=== PATIENT | female | born 1985 | race Caucasian/White ===

== ENCOUNTER → 2020-09-29 10:41 | Outpatient (CLI) | payer OTHER, SELFPAY ==
[2020-09-29 11:48] LABS: HCG Quantitative /Beta subunit 1104.9 mIU/mL
== END ==
PROVIDERS: PCP Obstetrics & Gynecology; Referring Provider Obstetrics & Gynecology; Visit Provider Obstetrics & Gynecology
DX: Z32.01 Encounter for pregnancy test, result positive (principal)
CPT/HCPCS: 36415; 84144; 84702

== ENCOUNTER → 2020-10-22 09:07 | Outpatient (CLI) | payer OTHER, SELFPAY ==
--- NOTE | 2020-10-22 09:08 | DI.US.S_ITS ---
PROCEDURE: US OB <= 14 WEEKS FETUS INDICATIONS: DATING AND VIABILITY OUTSIDE/PRIOR DATING DATA: Last menstrual period (LMP): Unknown LMP-based estimated date of delivery (EDGAR): Unknown First dating scan (date and location): 10/22/2020 at [facility] Estimated date of delivery (EDGAR) from first dating scan: 06/05/2021 TECHNIQUE: Real-time scanning was performed of the fetus and maternal pelvic organs, with image documentation. Endovaginal scanning was also performed to better visualize the fetus and maternal ovaries. COMPARISON: [facility], US, US PELVIC COMPLETE WITH TRANSVAGINAL, 04/29/2019, 19:26. FINDINGS: Single live intrauterine . Embryo: Intrauterine is seen with yolk sac and pole. Maurice-rump length measures 1.4 cm, consistent with a gestational age of 7 weeks 5 days. Heart rate: 163 beats per minute Measurement variability in dating: +/- 4 weeks by LMP, +/- 7 days by mean sac diameter (use before 6 weeks gestation if crown-rump length not able to be measured), +/- 5 days by crown-rump length (up to 8 weeks 6 days gestation), +/- 7 days by crown-rump length (up to 13 weeks 6 days gestation). Maternal organs: The ovaries are within normal limits bilaterally. A right ovarian corpus luteum cyst is seen measuring 3.3 x 3.3 x 2.9 cm. Heterogeneous appearance of the uterus is redemonstrated, most likely related to adenomyosis. A focal cystic structure is seen in the lower uterine segment that may be related to a degenerating fibroid or focal adenomyosis. IMPRESSION: 1. Single live intrauterine with estimated gestational age of 7 weeks 5 days. 2. Globular and heterogeneous uterine myometrium is most likely related to adenomyosis. Small avascular cystic structure in the lower uterine segment is nonspecific but most likely represents a degenerating fibroid or focal adenomyosis. Dictated by: Dashawn Chicas M.D. on 10/22/2020 at 10:10 Approved by: Dashawn Chicas M.D. on 10/22/2020 at 10:20
== END ==
PROVIDERS: PCP Family Medicine; Referring Provider Obstetrics & Gynecology; Visit Provider Obstetrics & Gynecology
DX: Z36.87 Encounter for antenatal screening for uncertain dates (principal); Z3A.01 Less than 8 weeks gestation of pregnancy
CPT/HCPCS: 76801; 76817

== ENCOUNTER → 2020-11-19 13:04 | Outpatient (CLI) | payer OTHER, SELFPAY ==
[2020-11-19 13:39] LABS: Appearance Urine UA CLEAR; Bilirubin Urine UA NEGATIVE (NEGATIVE); Color Urine UA YELLOW; Glucose Urine UA NEGATIVE (Negative); Ketones Urine UA 1+ (NEGATIVE); Leukocyte Esterase Urine UA 1+ (NEGATIVE); Nitrite Urine UA NEGATIVE (Negative); Occult Blood Urine UA 3+ (Negative); Protein Urine UA NEGATIVE (Negative); Specific Gravity Urine UA 1.015 (1.000-1.035); Urobilinogen Urine UA 0.2 E.U./dL (0.2)
[2020-11-19 13:41] LABS: pH Urine UA 5.5 (4.5-8.0)
[2020-11-19 13:51] LABS: Bacteria Urine Many (>30); RBC Urine 1-5/HPF (0-5/HPF); Squamous Epithelial Cell Urine 0-1 /HPF (0-5/HPF); WBC Urine 1-5/HPF (0-5/HPF)
[2020-11-19 13:52] LABS: Mucus Urine 1+ (Negative)
[2020-11-19 14:08] LABS: Add Manual Diff / Slide Review NO; Basophils Absolute Auto 0 /uL (0-100); Basophils Percent Auto 0.4 % (0-2); Eosinophils Absolute Auto 100 /uL (0-450); Eosinophils Percent Auto 0.8 % (2-4); Hematocrit 39.3 % (36-46); Hemoglobin 13.1 g/dL (12.0-16.0); Lymphocytes Absolute Auto 1600 /uL (1100-4500); Lymphocytes Percent Auto 23.6 % (25-40); Mean Corpuscular HGB Conc 33.5 % (30-36); Mean Corpuscular Hemoglobin 29.9 PG (26-34); Mean Corpuscular Volume 89.3 fL (80-100); Monocytes Absolute Auto 400 /uL (0-900); Monocytes Percent Auto 5.8 % (3-14); Neutrophils Absolute Auto 4600 /uL (1500-7000); Neutrophils Percent Auto 69.4 % (50-75); Platelet Count 282 X10^3/uL (150-400); Red Cell Distribution Width 14.3 % (11.6-14.8); White Blood Cell Count 6.7 X10^3/uL (4.5-11.0)
[2020-11-20 07:16] LABS: RPR Screen Non Reactive (Non Reactive)
[2020-11-20 08:13] LABS: Varicella IgG Antibody 608 index (Immune >165)
[2020-11-22 17:43] LABS: HIV 1 & 2 Ab/Ag 4th Gen Combo NEGATIVE (NEGATIVE); Hep C Virus Ab w/Reflex Quant NEGATIVE s/c (NEGATIVE); Hepatitis B Surface Antigen NEGATIVE s/c (NEGATIVE); Rubella Antibody IgG 13.6 IU/mL (>15)
== END ==
PROVIDERS: PCP Family Medicine; Referring Provider Obstetrics & Gynecology; Visit Provider Obstetrics & Gynecology
DX: Z34.81 Encounter for supervision of other normal pregnancy, first trimester (principal)
CPT/HCPCS: 36415; 80055; 81003; 81015; 86787; 86803; 86850; 86900; 86901; 87086; 87389

== ENCOUNTER → 2020-11-24 08:53 | Outpatient (CLI) | payer OTHER, SELFPAY | PROVIDERS: PCP Family Medicine; Referring Provider Obstetrics & Gynecology; Visit Provider Obstetrics & Gynecology | DX: O09.521 Supervision of elderly multigravida, first trimester (principal); Z36.0 Encounter for antenatal screening for chromosomal anomalies; Z32.01 Encounter for pregnancy test, result positive; Z3A.12 12 weeks gestation of pregnancy | CPT/HCPCS: 36415; 81420; 84144 ==

== ENCOUNTER → 2021-01-17 07:40 | Outpatient (CLI) | payer OTHER, SELFPAY ==
--- NOTE | 2021-01-17 07:41 | DI.US.S_ITS ---
PROCEDURE: US OB >= 14 WEEKS FETUS INDICATIONS: ANATOMY OUTSIDE/PRIOR DATING DATA: First dating scan (date and location): 10/22/2020 . Estimated date of delivery (EDGAR) from first dating scan: 06/05/2021 . TECHNIQUE: Real-time scanning was performed of the fetus, with image documentation and biometric measurements. Endovaginal scanning: No COMPARISON: [facility], , OB <= 14 WEEKS FETUS, 11/24/2020, 8:51. FINDINGS: General: A single living intrauterine gestation is present. Presentation: Transverse. Placenta: Placental position is posterior , without previa. Lower placental edge 2 cm or less from internal cervical os qualifies as low lying placenta. Amniotic fluid index: 9.3 cm, normal range is 5-24 cm. heart rate: 147 beats per minute. Maternal cervical canal: 6.8 cm long. Normal lower limit is 2.5 cm. Probable posterior intramural fibroid present which was persistent throughout the examination measuring 6.9 x 9.4 cm. biometrics: Biparietal diameter: 18 weeks 6 days Head circumference: 19 weeks 5 days Abdominal circumference: 20 weeks 5 days Femur length: 20 weeks 0 days Estimated gestational age from initial scan: 20 weeks 1 day Composite gestational age from present scan: 19 weeks 6 days Estimated weight and percentile: 343 g; 53rd percentile. Measurement variability for biometric dating: +/- 7 days from 14 weeks to 15 weeks 6 days gestation, +/- 10 days from 16 weeks to 21 weeks 6 days gestation, +/- 2 weeks from 22 weeks to 27 weeks 6 days gestation, +/- 3 weeks for 28 weeks gestation or later. weight reference: 4500 g or EFW >90/95% is considered macrosomia or large for gestational age. EFW <10% is small for gestational age. EFW 5% or less is considered intra-uterine growth restriction. Anatomic survey: Neuro: Ventricles are non-dilated at less than 10 mm. Cisterna magna is normal at 3-11 mm. Cerebellum is normal in size and morphology. Nuchal skin fold: Normal at less than 6 mm between 14-21 weeks gestational age. Face: Nose and lips, facial profile are normal. Spine: Suboptimally visualized. Heart: Suboptimally visualized. Diaphragm: Diaphragm is intact. Stomach: Left-sided stomach is present. Kidneys: No hydronephrosis. Normal is less than 5 mm in 2nd trimester, less than 7 mm in 3rd trimester. Cord: 3-vessel cord has orthotopic insertion. Bladder: Normal in size. Extremities: Right upper extremity suboptimally visualized; otherwise normal extremities. IMPRESSION: 1. Single living IUP redemonstrated and interval growth is within normal limits with estimated weight at the 53rd percentile. Of note, the BPD is at the 7th percentile for age and short-term follow-up ultrasound is recommended in 3-4 weeks to assess for interval changes. 2. Limited anatomic survey as above which can be reassessed on follow-up examination. 3. Probable posterior intramural fibroid which can be reassessed on follow-up examination. Dictated by: Nikos Baxter [facility] Interpreted: Lewis Delgado MD on 01/17/2021 at 15:33 Transcribed by: DARÍO on 01/17/2021 at 15:44 Approved by: Lewis Delgado M.D. on 01/17/2021 at 16:36
== END ==
PROVIDERS: PCP Family Medicine; Referring Provider Obstetrics & Gynecology; Visit Provider Obstetrics & Gynecology
DX: Z34.82 Encounter for supervision of other normal pregnancy, second trimester (principal); Z3A.19 19 weeks gestation of pregnancy
CPT/HCPCS: 76811

== ENCOUNTER → 2021-03-08 10:02 | Outpatient (CLI) | payer OTHER, SELFPAY ==
[2021-03-08 11:53] LABS: Hematocrit 34.4 % (36-46); Hemoglobin 11.7 g/dL (12.0-16.0)
[2021-03-08 12:12] LABS: GTT (PREG) 1 Hour PP 50gm Dose 136 mg/dL (76-139)
== END ==
PROVIDERS: PCP Family Medicine; Referring Provider Obstetrics & Gynecology; Visit Provider Obstetrics & Gynecology
DX: Z34.83 Encounter for supervision of other normal pregnancy, third trimester (principal); Z3A.27 27 weeks gestation of pregnancy
CPT/HCPCS: 36415; 82950; 85014; 85018

== ENCOUNTER 2021-04-27 08:32 | Outpatient (CLI) | payer OTHER, SELFPAY | END 2021-04-27 09:10 | disposition home or self-care (01) | LOC: LABOR 09:09 → OB 05-03 07:31 | PROVIDERS: PCP Family Medicine; Referring Provider Obstetrics & Gynecology; Visit Provider Obstetrics & Gynecology | DX: O09.523 Supervision of elderly multigravida, third trimester (principal); Z3A.35 35 weeks gestation of pregnancy | CPT/HCPCS: 59025; G0378; G0379 ==

== ENCOUNTER 2021-05-03 10:31 | Outpatient (CLI) | payer OTHER, SELFPAY | END 2021-05-03 11:14 | disposition home or self-care (01) | LOC: LABOR 10:38 → OB 05-04 13:11 | PROVIDERS: PCP Family Medicine; Referring Provider Obstetrics & Gynecology; Visit Provider Obstetrics & Gynecology | DX: O09.523 Supervision of elderly multigravida, third trimester (principal); Z3A.36 36 weeks gestation of pregnancy | CPT/HCPCS: 59025; G0378; G0379 ==

== ENCOUNTER 2021-05-10 09:11 | Outpatient (CLI) | payer OTHER, SELFPAY ==
--- NOTE | 2021-05-10 09:51 | P.TNLD_ITS ---
Visit Information Visit Information Date of evaluation: 05/10/21 Primary OB Provider: Bacilio Puri On-call OB Provider: Vira Guerrero Reason for Evaluation: Yes non-stress test Comments/Additional reasons for admission: Advanced maternal age and adenomyosis Vital Signs Vital Signs: Blood pressure 143/74 [facility] Medical History (Updated 03/30/21 @ 08:25 by Bacilio Puri MD) Abnormal Pap smear of cervix (~2007) Adenomyosis of uterus (~06/2019) Female infertility associated with anovulation Heartburn (~2010) Hypertension Iron deficiency anemia secondary to blood loss (chronic) (~04/2016) Kidney stones (~2013) Menorrhagia with regular cycle Migraines (~2010) Myopia of both eyes Palpitations Severe dysmenorrhea Wears contact lenses Surgical History (Updated 11/17/20 @ 22:21 by Wendy Marie) Anesthesia History of fracture of left ankle (~1997) History of hysteroscopy (~06/2019) History of removal of skin mole History of vaginal delivery Hx of arthroscopy (~2005) [place] teeth removed (~2017) Family History Mother Depression Anxiety Family/Other Hypertension Father Hypertension Grandmother Unknown family medical history Grandfather Known health problems: none Grandmother Arthritis Grandfather History of back surgery Sister Anemia Sister Anxiety Depression Social History marital status: unmarried,living together details: She lives in [place] part-time, part-time in [facility]. Every other week number of children: 1 household members: significant other and children lives independently: Yes caregiver/support person: No housing: house pets and animals: Yes (2 Dogs: safe, aware. Getting a puppy in November. 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[employer] current occupational exposures/hazards: No abel/episcopal: Anabaptism seatbelt use: always do you feel safe at home: Yes Smoking Status: Former smoker Tobacco: How many years used: 10 quit status: quit date established (2005) second hand exposure: No alcohol intake: former substance use type: does not use during the past year weight has: increased > 10 lbs well-balanced diet: daily or most days daily servings fruits/ve-4 caffeine: Yes (Lars tea.) Type(s) of exercise: walking and normal ROM and activity frequency: 3-4 times per week duration: 15-30 minutes/day Evaluation Evaluation Baseline heart rate: 150 Variability: Moderate (11-25) monitor accelerations: Present Monitor Decelerations: Absent Contraction Frequency (minutes): 0 Category of Tracing: Reactive Status: Category l Diagnosis, Plan/Disposition Final Diagnosis (1) Adenomyosis of uterus: Status: Chronic (2) Advanced maternal age (AMA) in : Status: Acute Plan/Disposition Plan: Reactive nonstress test. Continue routine OB visits and weekly nonstress test OB Disposition: home
== END 2021-05-10 09:52 | disposition home or self-care (01) ==
LOC: LABOR 09:54 → OB 05-11 14:00
PROVIDERS: PCP Family Medicine; Referring Provider Obstetrics & Gynecology; Visit Provider Obstetrics & Gynecology
DX: O34.03 Maternal care for unspecified congenital malformation of uterus, third trimester (principal); N80.0 Endometriosis of uterus; O09.522 Supervision of elderly multigravida, second trimester; Z3A.37 37 weeks gestation of pregnancy
CPT/HCPCS: 59025; 87186; 87653; G0378; G0379

== ENCOUNTER → 2021-05-10 09:27 | Outpatient (CLI) | payer OTHER, SELFPAY ==
[2021-05-11 07:36] LABS: Strep Grp B PCR POS for Grp B Strep
== END ==
PROVIDERS: PCP Family Medicine; Visit Provider Obstetrics & Gynecology
DX: Z34.83 Encounter for supervision of other normal pregnancy, third trimester (principal); Z3A.36 36 weeks gestation of pregnancy
CPT/HCPCS: 59025; 87186; 87653

== ENCOUNTER 2021-05-19 10:57 | Observation (INO) | payer OTHER, SELFPAY | END 2021-05-19 11:35 | disposition home or self-care (01) | PROVIDERS: Admitting Provider Obstetrics & Gynecology; PCP Family Medicine; Referring Provider Obstetrics & Gynecology; Visit Provider Obstetrics & Gynecology | DX: O09.523 Supervision of elderly multigravida, third trimester (principal); Z3A.38 38 weeks gestation of pregnancy | CPT/HCPCS: 59025; G0378; G0379 ==

== ENCOUNTER 2021-05-25 08:26 | Outpatient (CLI) | payer OTHER, SELFPAY ==
[2021-05-25 08:55] VITALS: BP 132/80; PULSE 100; RESP 16; TEMP 36.9
== END 2021-05-25 08:55 | disposition home or self-care (01) ==
LOC: OB 05-31 12:41
PROVIDERS: PCP Family Medicine; Referring Provider Obstetrics & Gynecology; Visit Provider Obstetrics & Gynecology
DX: O09.523 Supervision of elderly multigravida, third trimester (principal); O47.1 False labor at or after 37 completed weeks of gestation; Z3A.38 38 weeks gestation of pregnancy
CPT/HCPCS: 59025; G0378; G0379

== ENCOUNTER 2021-05-31 23:54 | Outpatient (CLI) | payer OTHER, SELFPAY | END 2021-06-01 07:11 | disposition home or self-care (01) | LOC: LABOR 23:57 → OB 03-29 10:26 | PROVIDERS: PCP Family Medicine; Referring Provider Obstetrics & Gynecology; Visit Provider Obstetrics & Gynecology | DX: O09.523 Supervision of elderly multigravida, third trimester (principal); Z3A.39 39 weeks gestation of pregnancy | CPT/HCPCS: G0378; G0379 ==

== ENCOUNTER 2021-06-01 20:02 | Inpatient (IN) | payer OTHER, SELFPAY ==
[2021-06-01 21:49] LABS: COVID19 -Nasal RAPID Negative (Negative)
[2021-06-01] MEDS: miSOPROStoL 25 MCG TABLET 50 MCG PO (22:11)
[2021-06-01 22:13] LABS: Add Manual Diff / Slide Review NO; Basophils Absolute Auto 200 /uL (0-100); Basophils Percent Auto 2.1 % (0-2); Eosinophils Absolute Auto 100 /uL (0-450); Eosinophils Percent Auto 0.9 % (2-4); Hematocrit 38.3 % (36-46); Hemoglobin 12.7 g/dL (12.0-16.0); Lymphocytes Absolute Auto 1900 /uL (1100-4500); Lymphocytes Percent Auto 22.2 % (25-40); Mean Corpuscular HGB Conc 33.2 % (30-36); Mean Corpuscular Hemoglobin 30.9 PG (26-34); Mean Corpuscular Volume 92.9 fL (80-100); Monocytes Absolute Auto 800 /uL (0-900); Monocytes Percent Auto 8.7 % (3-14); Neutrophils Absolute Auto 5800 /uL (1500-7000); Neutrophils Percent Auto 66.1 % (50-75); Platelet Count 213 X10^3/uL (150-400); Red Blood Cell Count 4.12 X10^6/uL (4.0-5.2); Red Cell Distribution Width 16.6 % (11.6-14.8); White Blood Cell Count 8.7 X10^3/uL (4.5-11.0)
[2021-06-01 22:28] VITALS: BP 135/83
[2021-06-01] MEDS: ZOLPIDEM 5 MG TABLET PO (23:58)
[2021-06-02] MEDS: miSOPROStoL 25 MCG TABLET 50 MCG PO (05:28)
--- NOTE | 2021-06-02 07:55 | PM.OBHP.1 ---
OB HPI Date/Time Date of admission: 06/01/21 Date Patient Seen: 06/02/21 Time Patient Seen: 07:55 History of Present Condition Chief complaint: : 4 Para: 2 Estimated Date of Delivery: 06/04/21 Estimated Gestational Age (weeks): 39+5 Narrative: Jay Rhodes (Sharene) is a 35 year old EDGAR 06/04/2021 admitted now at 39 weeks 5 days gestation for induction due to advanced maternal age. course is generally been unremarkable aside from chronic anemia which has been significantly improved with iron infusions in 3rd trimester. GBS is positive and the patient is penicillin allergic. Indications Indication for induction OB: other (Advanced maternal age) History of Present care: good care Dating criteria: LMP confirmed by 1st trimester US Obstetrical complications: other (GBS positive) Preadmission Labs Blood type: O (+) positive -: Antibody screen: negative, GBS status: positive, HBsAG: negative, HIV: negative and RPR/VDLR: negative -: Chlamydia screen: not detected and Gonorrhea screen: not detected -: Rubella: immune and Varicella: immune HCT: 38.3 HCAB: negative PAP: Normal Cell-free DNA: Negative for trisomy, male 1 hr GTT: 136 Prior (ies) History: Uncomplicated x 2 w/ YARELIS in labor Evaluation Evaluation Baseline heart rate: 125 Variability: Moderate (11-25) monitor accelerations: Present Monitor Decelerations: Absent Contraction Frequency (minutes): 4 Uterine Contraction Intensity: Moderate Category of Tracing: Reactive Status: Category l Dilation (cm): 2 Effacement (%): 80 Dilation: 1-2 cm Effacement: >/=80% station: -2 Position of cervix: mid Consistency: soft Vila score: 8 [facility] Medical History (Updated 05/25/21 @ 08:27 by Bacilio Puri MD) Abnormal Pap smear of cervix (~2007) Adenomyosis of uterus (~06/2019) Female infertility associated with anovulation Heartburn (~2010) Hypertension Iron deficiency anemia secondary to blood loss (chronic) (~04/2016) Kidney stones (~2013) Menorrhagia with regular cycle Migraines (~2010) Myopia of both eyes Palpitations Severe dysmenorrhea Wears contact lenses Surgical History (Updated 11/17/20 @ 22:21 by Wendy Marie) Anesthesia History of fracture of left ankle (~1997) History of hysteroscopy (~06/2019) History of removal of skin mole History of vaginal delivery Hx of arthroscopy (~2005) [place] teeth removed (~2017) Family History Mother Depression Anxiety Family/Other Hypertension Father Hypertension Grandmother Unknown family medical history Grandfather Known health problems: none Grandmother Arthritis Grandfather History of back surgery Sister Anemia Sister Anxiety Depression Social History marital status: unmarried,living together details: She lives in [place] part-time, part-time in [facility]. Every other week number of children: 1 household members: significant other and children lives independently: Yes caregiver/support person: No housing: house pets and animals: Yes (2 Dogs: safe, aware. Getting a puppy in November. ) education level: college ([employer] program.) occupational status: employed (Full-time [employer]: [employer].) current occupational exposures/hazards: No abel/jain: Roman Catholic seatbelt use: always do you feel safe at home: Yes Smoking Status: Former smoker Tobacco: How many years used: 10 quit status: quit date established (2005) second hand exposure: No alcohol intake: former substance use type: does not use during the past year weight has: increased > 10 lbs well-balanced diet: daily or most days daily servings fruits/ve-4 caffeine: Yes (Lars tea.) Type(s) of exercise: walking and normal ROM and activity frequency: 3-4 times per week duration: 15-30 minutes/day Meds Home Medications and Allergies Home Medications Medication Instructions Recorded Confirmed Type ascorbic acid (vitamin C) 1,000 mg 1,000 mg PO .COMPLEX tab 09/22/20 05/25/21 History tablet ashwagandha root extract 300 mg mg PO 09/22/20 05/25/21 History capsule bupropion HCl 150 mg tablet,12 hr 150 mg PO DAILY 09/22/20 05/25/21 History sustained-release metformin 1,000 mg tablet 1,000 mg PO BID 09/22/20 05/25/21 History polysaccharide iron complex 150 mg 150 mg PO DAILY 09/22/20 05/25/21 History iron capsule (Ferrex) CMP Progesterone Suppositories 200 See Rx Instructions .ROUTE 09/29/20 05/25/21 Rx mg .COMPLEX #30 supp hydrocortisone 2.5 % topical cream 1 applic TOPICAL TID PRN #30 g 12/30/20 05/25/21 Rx Allergies Allergy/AdvReac Type Severity Reaction Status Date / Time lactose Allergy Intermediate GI upset Verified 05/25/21 08:01 mold Allergy Intermediate Hay fever Verified 05/19/21 10:35 symptoms Penicillins Allergy Intermediate Hives & Verified 05/19/21 10:35 rash tree and shrub pollen Allergy Intermediate Hay fever Verified 05/19/21 10:35 symptoms meloxicam AdvReac Intermediate dizzy Verified 05/19/21 10:35 tramadol AdvReac Intermediate dizziness Verified 05/19/21 10:35 Review of Systems Review of Systems ROS: Yes All systems reviewed with the patient and are negative except as otherwise documented OB Exam HENMT Head: normal to inspection Eyes General: appearance normal, both eyes and all related structures Resp Effort & Inspection: normal respiratory effort and able to speak in complete sentences Auscultation: clear to auscultation bilaterally Cardio Rhythm: regular rhythm Heart Sounds: S1 normal, S2 normal and murmur GI Inspection: normal to inspection Palpation: soft and no hepatosplenomegaly Uterus Location (Fundal Height): 36 Presentation: vertex Estimated Weight (lbs): 8 Objective Labs Result Diagrams: 06/01/21 22:00 Labs: Laboratory Results - last 24 hr 06/01/21 06/01/21 06/01/21 21:20 22:00 22:00 WBC 8.7 RBC 4.12 Hgb 12.7 Hct 38.3 MCV 92.9 MCH 30.9 MCHC 33.2 RDW 16.6 H Plt Count 213 Neut % (Auto) 66.1 Lymph % (Auto) 22.2 L [place] % (Auto) 8.7 Eos % (Auto) 0.9 L Baso % (Auto) 2.1 H Neut # (Auto) 5800 Lymph # (Auto) 1900 [place] # (Auto) 800 Eos # (Auto) 100 Baso # (Auto) 200 H SARS-CoV-2 (PCR) Negative Blood Type O Positive Antibody Screen Negative Assessment and Plan Assessment and Plan Assessment and Plan narrative: ASSESSMENT 1. Intrauterine gestation, [place], vertex, 39+ 5 weeks gestational age 2. GBS positive; penicillin allergic 3. History of adenomyosis PLAN 1. Admit for cervical ripening/induction 2. GBS prophylaxis with clindamycin IV 3. See admission orders
[2021-06-02] MEDS: CLINDAMYCIN 900 MG/50 ML PIGGYBACK 50 MG IV ×2 (09:00→16:03)
[2021-06-02] MEDS: LACTATED RINGERS 1,000 ML 100 ML IV ×3 (09:00→20:08)
[2021-06-02] MEDS: OXYTOCIN PREMIX 30 UNIT/500 ML PLAST..BAG IV (10:00)
--- NOTE | 2021-06-02 13:25 | PM.OBPNLAB ---
Date/Time Date Patient Seen: 06/02/21 Time Patient Seen: 13:25 Pain Control Pain control: tolerating well Pelvic Exam Dilation (cm): 2 Effacement (%): 90 station: -2 Amniotic membrane status: Intact Contractions Contractions on admission: irregular Monitor mode: External Pitocin rate (mU/min): 8 Contraction frequency (min): 4 Contraction duration (min): 1 Contraction intensity: Moderate Status status: Category l Heart Rate Baseline: 125 Monitor Accelerations: Present Monitor Decelerations: Early and Episodic Monitor Variability: Moderate Assessment and Plan Assessment: induction ongoing Plan: continuous present management
[2021-06-02] MEDS: TERBUTALINE 1 MG/ML VIAL 0.25 MG SUBCUT (17:34)
--- NOTE | 2021-06-02 17:34 | PM.OBPNLAB ---
Date/Time Date Patient Seen: 06/02/21 Time Patient Seen: 17:24 Pain Control Pain control: tolerating well Pelvic Exam Dilation (cm): 2 Effacement (%): 90 station: -2 Amniotic membrane status: Intact Contractions Monitor mode: External Pitocin rate (mU/min): 0 Contraction frequency (min): 3 Contraction duration (min): 1 Contraction pattern: Regular Contraction intensity: Moderate Status status: Category lll Heart Rate Baseline: 150 Monitor Accelerations: Absent Monitor Decelerations: Late and Recurrent Monitor Variability: Moderate Assessment and Plan Assessment: induction ongoing Plan: Comments: Patient experienced a series of deep late decelerations and pitocin D/C'd immediately. O2 applied, fluid bolus given, and position change all resulted in decreased depth of the decelerations but they remain persistent. Cervix remains unchanged and vertex remains at -2 station therefore infant is remote from delivery. SQ terbutaline .25 mg administered and options reviewed with the patient and her spouse Rohit. Primary section recommended due to intolerance of labor remote from delivery and both Rosy and Rohit concur. Counselled re: alternatives, risks, benefits, and potential complications of primary section and with fuull understanding of the abobe, a written consent was executed, signed and witnessed this date.
--- NOTE | 2021-06-02 17:36 | SUR.OPER ---
Supine on Padded OR bed, head on pillow, safety belt at thigh, arms secured on padded arm boards at <90 degrees abduction. Bump under right buttock. Legs uncrossed with pillow under knees, gel pad to heels, tape over blanket to lower legs.
--- NOTE | 2021-06-02 18:35 | SUR.OPER ---
Viable male delivered at 1820. Cord blood and placenta sent with L&D nurse.
[2021-06-02 19:22] VITALS: BP 107/56; PULSE 93; RESP 14; TEMP 36.2; O2SAT 100
[2021-06-02 19:26] VITALS: BP 88/60; PULSE 92; RESP 16; O2SAT 100
--- NOTE | 2021-06-02 19:27 | PM.OBCS.1 ---
Operative Date/Time/Diagnoses Date of procedure: 06/02/21 Time of procedure: 18:00 Pre-op diagnosis: Intrauterine , acuna, vertex, 39+5 weeks EGA intolerance of labor, remote from delivery Advanced maternal age History of adenomyosis Post-op diagnosis: same Procedure & Clinicians Procedure: Primary section, low transverse cervical Same procedure as scheduled: Yes Indications: Jay Rhodes (Sharene) is a 35 year old EDGAR 06/04/2021 admitted 06/01/2021 at 39 weeks 5 days gestation for induction due to advanced maternal age.? Prior history is notable for uterine enlargement, severe dysmenorrhea, and menorrhagia associated with significant uterine adenomyosis. 2 doses of oral Cytotec for ripening, Pitocin augmentation was started on the morning of 06/02/2021 but throughout the course of the day, the patient's cervix did not dilate beyond 2 cm despite active contractions with the vertex remaining at -2 station. Late on the afternoon of 06/02/2021, the patient developed repetitive late decelerations which abated with discontinuation of Pitocin, and other resuscitative efforts. The late deceleration is a however persisted and baseline changes strongly suggested intolerance of labor remote from delivery. After discussion of all options with the patient and her , we are proceeding with primary section for the indication of intolerance of labor remote from delivery. Surgeon: Bacilio Puri Wash Oil Pump Operator Helper: Kelsea Mansfield Anesthesia Type: Spinal Operative Notes Findings: Viable male infant, vertex, Apgars 8/9, BW 3687 gms. (8# 2.1 oz.), CAN x 1, diffuse myometrial thickening of the uterine corpus, 3 x 7 cm posterior MUS intramural myoma vs. adenomyoma, two 2 cm subserosal myomata, fundal, otherwise normal gravid anatomy. Closure Type: primary Specimen(s): cord blood Intraoperative meds administered: Methergine and Pitocin Estimated Blood Loss (mL): 850 Blood products transfused: none Procedure in detail: With the patient under satisfactory spinal block anesthesia in the dorsal supine position, a Shi catheter was inserted and the patient prepped and draped for section. A pre-surgical safety time-out was then taken in accordance with [facility] Main OR protocols. A 15 cm Pfannenstiel skin incision was made, carried down through the subcutaneous tissues, and the fascia was incised transversely. The fascia was then undermined cephalad and caudad and the rectus abdomini bluntly with the peritoneal cavity entered without difficulty. Bladder flap was developed with a transverse incision using Metzenbaum scissors and hysterotomy was then performed productive of clear amniotic fluid. The infant was delivered with the assistance of vacuum extraction using a Kiwi OmniCup and a nuchal cord was reduced. Delayed cord clamping was aborted due to initial poor tone of the infant and therefore the cord was doubly clamped and cut followed by transfer the baby to the warmer for evaluation and stimulation. The placenta was expressed from within the uterine cavity by vigorous massage of the fundus combined with gentle cord traction. Placenta was seen to be intact, 3 vessels and the endometrial cavity was confirmed to be empty by placement of a sloppy wet lap followed by a dry lap into the endometrial cavity. The uterus was then exteriorized with some difficulty and the hysterotomy repaired with 2 layers of 1. Chromic catgut suture using 1st a running interlocking stitch initiated at both angles and tying separately near the midline followed by a running interlocking imbricating stitch over the 1st layer. No additional hemostatic sutures were required. The pelvic and abdominal cavity were her irrigated and seen to be free of any bleeding points. The uterus was replaced in the abdominal cavity but extension of the skin and fascial incisions was required to be able to do so. The anterior peritoneum was then closed with 2-0 Vicryl in a running stitch and the fascia closed with 1. Vicryl in a running stitch initiated at either angle and tying separately near the midline. The subcutaneous tissues were brought together with 2-0 Vicryl in a running stitch and the skin was closed with 4-0 Monocryl using a running subcuticular stitch. Appropriate dressing was applied and the patient was transferred to the PACU for a period of observation and recovery having tolerated the procedure well. Complications: none [place] Baby 1: Infant Gender: Male Presentation: vertex Position: Left Occiput Anterior Placental Delivery Description: Expressed Cord Vessel Description: 3 Vessels and Nuchal Cord Post-operative Condition: stable Disposition: PACU Aftercare: routine postop
[2021-06-02 19:35] VITALS: BP 130/67; PULSE 93; RESP 18; O2SAT 100
[2021-06-02 19:37] VITALS: BP 108/65; PULSE 95; RESP 13; TEMP 36.7; O2SAT 100
[2021-06-02 19:41] VITALS: BP 112/78; PULSE 89; RESP 17; O2SAT 100
[2021-06-02 19:51] VITALS: BP 108/68; PULSE 89; RESP 13; TEMP 36.7; O2SAT 100
[2021-06-02] MEDS: TRANEXAMIC ACID 1,000 MG in SODIUM CHLORIDE 0.9% 100 ML 200 ML IV ×2 (20:04→23:25)
[2021-06-02] MEDS: MORPHINE 2 MG/ML INJ IV (20:23)
[2021-06-02] MEDS: IBUPROFEN 600 MG TABLET PO (21:06)
[2021-06-02] MEDS: ACETAMINOPHEN 325 MG TABLET 650 MG PO (21:06)
[2021-06-02] MEDS: MORPHINE 4 MG/ML INJ IV (22:47)
[2021-06-03] MEDS: OXYCODONE IR 5 MG TABLET PO ×5 (01:14→14:15)
[2021-06-03] MEDS: IBUPROFEN 600 MG TABLET PO ×4 (03:10→21:23)
[2021-06-03] MEDS: ACETAMINOPHEN 325 MG TABLET 650 MG PO ×4 (03:10→21:23)
[2021-06-03] MEDS: MORPHINE 2 MG/ML INJ IV (03:41)
[2021-06-03 05:18] LABS: Add Manual Diff / Slide Review NO; Basophils Absolute Auto 0 /uL (0-100); Basophils Percent Auto 0.2 % (0-2); Eosinophils Absolute Auto 0 /uL (0-450); Eosinophils Percent Auto 0.3 % (2-4); Hematocrit 31.7 % (36-46); Hemoglobin 10.8 g/dL (12.0-16.0); Lymphocytes Absolute Auto 1000 /uL (1100-4500); Lymphocytes Percent Auto 9.9 % (25-40); Mean Corpuscular HGB Conc 34.1 % (30-36); Mean Corpuscular Hemoglobin 31.5 PG (26-34); Mean Corpuscular Volume 92.3 fL (80-100); Monocytes Absolute Auto 600 /uL (0-900); Monocytes Percent Auto 6.4 % (3-14); Neutrophils Absolute Auto 8100 /uL (1500-7000); Neutrophils Percent Auto 83.2 % (50-75); Platelet Count 162 X10^3/uL (150-400); Red Blood Cell Count 3.44 X10^6/uL (4.0-5.2); Red Cell Distribution Width 16.2 % (11.6-14.8); White Blood Cell Count 9.7 X10^3/uL (4.5-11.0)
--- NOTE | 2021-06-03 09:04 | P.PNOB_ITS ---
Subjective - OB Subjective Patient comments: no complaints, incisional pain and tolerating diet; no pain well controlled baby status: doing well [place] feeding status: exclusively breast feeding Narrative: MS required overnight for pain control but doing better now. She has not ambulated yet however. Date Patient Seen: 06/03/21 Time Patient Seen: 09:05 Exam Vital Signs (past 8 hours): Oxygen Delivery Method Room Air Const General: cooperative, comfortable and well developed Nutritional Appearance: average body habitus Orientation: alert and oriented x3 HENMT Head: normal to inspection Face and sinus: face symmetric Eyes General: appearance normal, both eyes and all related structures Resp Effort & Inspection: normal respiratory effort and able to speak in complete sentences Auscultation: clear to auscultation bilaterally Cardio Rate: regular rate Rhythm: regular rhythm Heart Sounds: S1 normal, S2 normal and no murmurs GI Inspection: incision (Dressing clean and dry) Palpation: soft, no hepatosplenomegaly and mass (Fundus is mildly tender, firm, at the umbilicus) Auscultation: hypoactive bowel sounds Psych Appearance: grossly normal Mental Status: mental status grossly normal Speech and Movement: speech and movement normal Mood: congruent mood Affect: normal affect Attitude: cooperative Thought Process: normal Thought Content: normal Judgment: judgment good Objective Labs Result Diagrams: 06/03/21 05:04 Labs: Laboratory Results - last 24 hr 06/03/21 05:04 WBC 9.7 RBC 3.44 L Hgb 10.8 L Hct 31.7 L MCV 92.3 MCH 31.5 MCHC 34.1 RDW 16.2 H Plt Count 162 Neut % (Auto) 83.2 H Lymph % (Auto) 9.9 L [place] % (Auto) 6.4 Eos % (Auto) 0.3 L Baso % (Auto) 0.2 Neut # (Auto) 8100 H Lymph # (Auto) 1000 L [place] # (Auto) 600 Eos # (Auto) 0 Baso # (Auto) 0 Assessment & Plan Plan day: 1 plan OB: routine postop care Comments: Will continue to establish good pain control while at the same time minimizing use of narcotics. IV Venofer 100 mg x1 Anticipate discharge 06/04/2021 Time Spent With Patient Time with patient: 15-24 minutes
[2021-06-03] MEDS: DOCUSATE 100 MG CAPSULE 200 MG PO (09:07)
[2021-06-03] MEDS: buPROPion SR 150 MG TAB PO (09:48)
[2021-06-03] MEDS: IRON SUCROSE 100 MG in SODIUM CHLORIDE 0.9% 100 ML 420 ML IV (09:48)
[2021-06-03] MEDS: ONDANSETRON 4 MG/2 ML INJ IV ×2 (10:13→16:33)
[2021-06-03] MEDS: SIMETHICONE 80 MG TABLET PO ×2 (13:04→19:16)
[2021-06-03] MEDS: OXYCODONE IR 10 MG TABLET PO ×3 (17:44→23:52)
[2021-06-04] MEDS: OXYCODONE IR 10 MG TABLET PO ×3 (02:47→09:12)
[2021-06-04] MEDS: IBUPROFEN 600 MG TABLET PO ×3 (03:20→16:54)
[2021-06-04] MEDS: ACETAMINOPHEN 325 MG TABLET 650 MG PO ×3 (03:20→16:55)
--- NOTE | 2021-06-04 08:20 | PM.OBPN.1 ---
Subjective - OB Subjective Patient comments: incisional pain, tolerating diet and flatus present baby status: doing well and nursing well feeding status: exclusively breast feeding Narrative: Slightly better pain control overnight w/ 10 mg oxycodone every 3-4 hours. + flatus, no BM as yet. Limited ambulation due to pain thus far. Date Patient Seen: 06/04/21 Time Patient Seen: 08:22 Exam Vital Signs (past 8 hours): Oxygen Delivery Method Room Air Const General: cooperative, comfortable and well developed Nutritional Appearance: average body habitus Orientation: alert and oriented x3 HENMT Head: normal to inspection Eyes General: appearance normal, both eyes and all related structures Neck Neck: normal visual inspection Resp Effort & Inspection: normal respiratory effort and able to speak in complete sentences Auscultation: clear to auscultation bilaterally Cardio Rate: regular rate Rhythm: regular rhythm Heart Sounds: S1 normal, S2 normal and no murmurs GI Inspection: normal to inspection and incision (Dressing remains clean and dry) Palpation: soft, no hepatosplenomegaly and mass (U-2 firm, mildly tender) Auscultation: normoactive bowel sounds Extrem General: normal to inspection and no calf tenderness Psych Appearance: grossly normal Mental Status: mental status grossly normal Speech and Movement: speech and movement normal Mood: congruent mood Affect: normal affect Attitude: cooperative Thought Process: normal Thought Content: normal Judgment: judgment good Objective Labs Result Diagrams: 06/03/21 05:04 Assessment & Plan Plan day: 2 plan OB: routine postop care Comments: Undecided about D/C later today due to concerns about being able to ambulate and perform NDA's at home. Will re-evaluate for discharge later today Time Spent With Patient Time: Total time spent is greater than 50% in coordination of care (as documented) at patient's floor/unit and/or counseling patient: Time with patient: 15-24 minutes
[2021-06-04] MEDS: DOCUSATE 100 MG CAPSULE 200 MG PO (09:11)
--- NOTE | 2021-06-04 15:27 | P.DS_ITS ---
Discharge Providers Provider Date of admission: 06/01/21 20:02 Discharge Date: 06/04/21 Primary care physician: Sara Grant DO Consults: 06/01/21 20:28 Consult to Anesthesiology Urgent Comment: Consulting Provider: Bacilio Puri Reason for consultation: YARELIS placement in labor Has provider been notified: No 06/02/21 19:50 Consult to Automotive Sales Associate Routine Comment: Discharge provider: Bacilio Puri MD Summary Hospital Course Date Patient Seen: 06/04/21 Time Patient Seen: 15:27 Diagnoses: Intrauterine gestation, Thorne, 39+ 6 weeks gestational age, delivered Advanced maternal age intolerance of labor remote from delivery Severe uterine adenomyosis GBS positive status, antepartum, delivered Hospital Course: Rosy was admitted on the evening of 06/01/2021 for cervical ripening prior to induction due to advanced maternal age at 39+ 5 weeks gestational age. She received oral Cytotec 50 mcg p.o. x2 doses and was initiated on IV Pitocin augmentation on the morning of 06/02/2021. The patient did well but her cervix did not change beyond 2 cm dilation with the vertex remaining at -2 station and late on the afternoon of 06/02/2021, the patient developed persistent recurrent late deceleration so which responded only partially to intrauterine resuscitative efforts. With intolerance remote from delivery, the decision was made to proceed to primary section which was performed on the evening of 06/02/2021. The surgery itself was uncomplicated and the details of the procedure well summarized in my dictated operative note of that date. Following surgery, the patient has done extremely well with the exception of getting her pain under control in the 1st 24 hours following surgery. As result of her difficulty with postoperative pain, ambulation was slowed but in the 12- 18 hours prior to discharge patient has began to successfully ambulated independently, is tolerating regular diet, has had good return of bowel and bladder function, and remained afebrile and normotensive throughout her postoperative course. She will be discharged at this time to home with oxycodone 5 mg tablets 1 every 4 hours as needed for pain, dispensed 30 with no refills and ibuprofen 600 mg p.o. every 6 hours as needed for pain. Prior to discharge the patient was counseled regarding precautionary symptoms, limitations of activity, medications, and plans for follow-up which will be in 1 week. She will have an incision check at that time and her act was cell dressing removed. Patient is undecided about contraception but a progestin based contraceptive method would be best choice given her severe adenomyosis. This and other issues will be discussed at her 1 week postoperative checkup. Peripartum Data Delivery Method: Emergency Section Laceration Description: None Episiotomy description: None Procedures: Primary section, low transverse cervical Spinal block anesthesia complications: none [place] 1: Gender: Male Disposition of : home Status at Discharge Cognitive/behavioral status at discharge: oriented Functional status at discharge: independent ambulation Overall status at discharge: patient is progressing back to baseline Time Spent with Patient Time attestation: Total time spent providing and/or coordinating discharge services: Time spent: Less than 30 minutes Specific discharge activities: See discharge instructions Objective Labs Result Diagrams: 06/03/21 05:04 Exam Vital Signs (past 8 hours): Oxygen Delivery Method Room Air Const General: cooperative and comfortable Nutritional Appearance: average body habitus Orientation: alert and oriented x3 HENMT Head: normal to inspection Ears: hearing grossly normal bilaterally Face and sinus: face symmetric Eyes General: appearance normal, both eyes and all related structures Conjunctivae: conjunctivae normal Sclera: sclerae normal EOM: EOM intact bilaterally Neck Neck: normal visual inspection Resp Effort & Inspection: normal respiratory effort and able to speak in complete sentences Auscultation: clear to auscultation bilaterally Cardio Rate: regular rate Rhythm: regular rhythm Heart Sounds: S1 normal, S2 normal and no murmurs GI Inspection: normal to inspection and incision (Dressing clean and dry) Palpation: soft, no hepatosplenomegaly and mass (Fundus firm, U -5, nontender) General: other (Deferred) Skin General: no rashes or lesions noted Extrem General: No calf tenderness Psych Appearance: grossly normal Mental Status: mental status grossly normal Speech and Movement: speech and movement normal Mood: congruent mood Affect: normal affect Attitude: cooperative Thought Process: normal Thought Content: normal Judgment: judgment good Discharge Plan Discharge Plan Patient Disposition: Home Provider Discharge Comment: Please review the written instructions he received at the time of your discharge from the hospital. Your follow-up appointment will be scheduled for 1 week and I look forward to seeing you then. If in the meanwhile, you have issues, concerns, or problems, please feel free to contact me either through the office phone, the patient portal, or via my personal cell phone number. Discharge orders & Medications Prescriptions: New oxycodone 5 mg tablet 5 mg PO Q4H PRN (Reason: pain) 5 Days Qty: 30 0RF ibuprofen 600 mg tablet 600 mg PO Q6H PRN (Reason: pain) Qty: 60 2RF Continued metformin 1,000 mg tablet 1,000 mg PO BID 0RF bupropion HCl 150 mg tablet sustained-release 12 hr 150 mg PO DAILY 0RF ashwagandha root extract 300 mg capsule PO 0RF ascorbic acid (vitamin C) 1,000 mg tablet 1,000 mg PO .COMPLEX 0RF Rx Instructions: 1,000 mg PO 4 x weekly; polysaccharide iron complex [Ferrex 150] 150 mg iron capsule 150 mg PO DAILY 0RF Discontinued CMP Progesterone Suppositories 200 mg See Rx Instructions .ROUTE .COMPLEX Qty: 30 1RF Rx Instructions: Insert vaginally at bedtime; hydrocortisone 2.5 % cream 1 applic topical TID PRN (Reason: itching) Qty: 30 6RF Follow up/Referrals: Bacilio Puri MD [Physician] - (Incision check with Dr. Puri on 06/10/21 at 10:00 a.m.) Discharge Health Status Multidrug resistant organism: No MDRO Diet/Activity/Treatments Diet: Diet as Tolerated Activity: As tolerated Skin/Wound/Dressing Care Report to your healthcare provider any signs of infection, such as:: chills, fever, increased pain, unusual drainage and unusual redness Dressing: Dressing will be removed at the time of 1 week postop visit Visit Report/Discharge Packet Instructions: DI for Prescription Opioid Use, DI for , DI for and Nipple Soreness Discharge Data Primary Care Provider: Sara Cohn
[2021-06-04] MEDS: SIMETHICONE 80 MG TABLET PO (16:54)
[2021-06-04 18:29] VITALS: BP 108/68; PULSE 89; RESP 13; TEMP 36.7
[2021-06-04] MEDS: OXYCODONE IR 5 MG TABLET PO (19:47)
== END 2021-06-04 19:00 | disposition home or self-care (01) | DRG 788 ==
PROVIDERS: Admitting Provider Obstetrics & Gynecology; PCP Family Medicine; Referring Provider Obstetrics & Gynecology; Visit Provider Obstetrics & Gynecology
PROC: 10D00Z1 Extraction of Products of Conception, Low, Open Approach (ICD-10-PCS; CPT 59514; principal; 2021-06-02 17:30)
DX: O76 Abnormality in fetal heart rate and rhythm complicating labor and delivery (principal); Z3A.39 39 weeks gestation of pregnancy; Z37.0 Single live birth; O61.0 Failed medical induction of labor; O69.81X0 Labor and delivery complicated by cord around neck, without compression, not applicable or unspecified; O99.824 Streptococcus B carrier state complicating childbirth; O99.02 Anemia complicating childbirth; D50.9 Iron deficiency anemia, unspecified; O99.891 Other specified diseases and conditions complicating pregnancy; N80.0 Endometriosis of uterus; Z20.822 Contact with and (suspected) exposure to COVID-19
CPT/HCPCS: 36415; 59050; 59510; 59514; 85025; 86850; 86900; 86901; 87635; C9803; G0378; G0379; J1756; J2270; J2405; J2590; J2704

== ENCOUNTER → 2021-07-13 16:34 | Outpatient (CLI) | payer OTHER, SELFPAY | PROVIDERS: PCP Family Medicine; Referring Provider Obstetrics & Gynecology; Visit Provider Obstetrics & Gynecology | DX: O90.89 Other complications of the puerperium, not elsewhere classified (principal) | CPT/HCPCS: 87070; 87186; 87205 ==

== ENCOUNTER 2022-07-20 12:52 | Day surgery (SDC) | payer OTHER, SELFPAY ==
[2022-07-20] VITALS (10 sets, daily range): BP systolic 113–130; BP diastolic 62–86; PULSE 85–118; RESP 14–20; TEMP 36.1–36.8; O2SAT 95–100; BMI 32.6
--- NOTE | 2022-07-20 | PATH_ITS ---
[facility] Accession Number: [id number] No. of containers..01 Tissue . 01 Material submitted: . uterus - UTERUS AND BILATERAL FALLOPIAN TUBES . 01 Diagnosis: A. 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 Background with weakly proliferative endometrium. Inflamed cervix with reactive changes. Serosa within normal limits. Bilateral fallopian tubes within normal limits. No evidence of glandular dysplasia, endometrioid intraepithelial neoplasia, or malignancy. MR 07/25/2022 1801 Local . 01 Electronically signed: . Kasandra Schroeder MD, Pathologist NPI- [id number] . 01 Gross description: . The specimen is received in formalin labeled with the patient's name, , and uterus and bilateral tubes, and consists of an intact uterus (115 grams, 9.3 cm SI, 6.4 cm ML and 4.7 cm AP), attached cervix (3.5 x 3.2 cm), two detached unoriented fimbriated fallopian tubes (9.0 x 0.7 cm and 7.2 x 0.9 cm, respectively), and no additional adnexa. The ectocervix is pink-castaneda and smooth with a slit-like cervical os measuring 0.6 cm in diameter. The serosa is castaneda and smooth with no evidence of adhesion or hemorrhage grossly identified. The anterior paracervical margin is inked blue while the posterior paracervical margin is inked black. The endocervical canal has castaneda herringbone mucosa and measures 3.0 cm in length. The endometrial cavity measures 2.7 cm from cornu to cornu and 4.1 cm in length with red velvety endometrium that averages 0.1 cm thick. A fairly well-defined castaneda whorled nodule is identified subserosally measuring 0.9 x 0.6 x 0.5 cm. The myometrium is pink-castaneda and significant for an ill-defined trabecular area located on the posterior aspect measuring 3.0 x 2.9 x 2.7 cm and extending close but not into the serosa. The myometrium measures up to 2.7 cm thick with no additional lesions identified. . The longer fallopian tube has congested smooth serosa with no cystic structures identified, and sectioning reveals an unremarkable stellate lumen. The shorter fallopian tube has congested smooth serosa with no cystic structures identified, and sectioning reveals an unremarkable stellate lumen. . Director Of Speech Pathology sections are submitted as follows: A1: Anterior cervix. A2: Posterior cervix. A3: Anterior full thickness section. A4-A5: Composite posterior full thickness section with ill-defined nodule and greatest extension. A6: Subserosal nodule. A7: Director Of Speech Pathology serosa. A8: Longer fallopian tube to include one-half of bisected fimbriae and cross-sections. Aa9: University fallopian tube to include one-half of bisected fimbriae and cross-sections. ([id number]) /MRV 07/21/2022 0923 Local . 01 Pathologist provided ICD-10: D25.1 . 01 CPT . 413388 Specimen Comment: A courtesy copy of this report has been sent to [phone] Performed at: 01 [facility] [address] [place] [address], [place], [place] [id number] MD Ilya Mcdaniel MD Phone: [phone]
[2022-07-20] MEDS: LACTATED RINGERS 1,000 ML 42 ML IV (13:42)
[2022-07-20] MEDS: SCOPOLAMINE 1 PATCH TOP (13:42)
[2022-07-20 14:02] LABS: COVID19 -Nasal RAPID Negative (Negative)
--- NOTE | 2022-07-20 14:12 | PM.PREOP ---
Pre-operative Note COVID-19 COVID-19 status: Negative Result date/Date tested (Pos, Neg/Pending): 07/20/22 Criteria for continued procedure: Non-surgical alternatives not available or appropriate per current SOC Interval Note History & Physical reviewed/Exam performed by Physician: Yes Changes to H&P: No
[2022-07-20] MEDS: CEFAZOLIN 2 GM/100 ML PREMIX 100 ML IV (14:25)
--- NOTE | 2022-07-20 15:12 | SUR.OPER ---
Lithotomy on padded OR bed, head on pillow, arms wrapped in gelpads and tucked against side. Legs secured in padded yellow fins stirrups.
[2022-07-20] MEDS: BUPIVACAINE 0.5% (PF) 30 ML, EPINEPHrine 0.15 MG INJ (15:19)
[2022-07-20] MEDS: ACETAMINOPHEN IV 1,000 MG/100 ML VIAL 400 MG IV (15:45)
[2022-07-20] MEDS: ROPIVACAINE 0.2% PF 2 MG/ML 20ML AMP 20 ML INJ (15:58)
[2022-07-20] MEDS: ONDANSETRON 4 MG/2 ML INJ IV (16:38)
[2022-07-20] MEDS: HYDROMORPHONE 2 MG INJ IV (16:41)
--- NOTE | 2022-07-20 16:43 | PM.GYNOP.1 ---
Operative Date/Time/Diagnoses Date of procedure: 07/20/22 Time of procedure: 16:43 Pre-op diagnosis: Menometrorrhagia Adenomyosis Post-op diagnosis: same Procedure & Clinicians Procedure: Procedures Operation Date: 07/20/22 13:45 Actual Procedure Side Surgeon p Laparoscopic Total Hysterectomy w. bilateral salpingectomy Bacilio Puri MD Indications: Rosy is a 36 yo with a long history of menometrorrhagia and chronic sent for pelvic pain associated with adenomyosis documented on multiple imaging studies.? Patient's most recent delivery was 06/01/2021 was by primary section due to intolerance of labor and following delay had a Nexplanon inserted.? That provided some control but more recently her bleeding has resumed on adversely continuous basis requiring both TXA and continuous Provera to reduce the flow.? After consideration of all options, patient has opted for performance of a total laparoscopic hysterectomy with bilateral salpingectomy and removal of nexplanon.? She presents today for her scheduled surgery. Surgeon: Bacilio Puri Orchid Worker: Eleni Gupta Anesthesia Type: General Operative Notes Findings: The uterus is diffusely enlarged to approximately 8-10 weeks in size and boggy. There is a small anterior fibroid noted. Both ovaries and tubes appeared to be completely normal and the anterior and posterior cul-de-sacs are free of any abnormalities, endometrial implants, or adhesions. The appendix was not visualized but the liver edge is normal and the gallbladder appears normal as well. Closure Type: primary Specimen(s): left tube, right tube and uterus Applied: catheter Estimated blood loss (mL): 200 Blood products transfused: none Procedure in detail: With the patient in modified dorsal lithotomy position preparations were made by prepping and draping the patient in usual manner for vaginal surgery and insertion of Shi catheter. A pre-surgical time-out was then taken in accordance with [facility] policy. A bivalve speculum was then placed in the vagina and the cervix visualized. The anterior lip of the cervix was then grasped with a single-tooth tenaculum. The uterus was sounded to 9+ cm, the endocervical canal dilated slightly, and a VCare uterine manipulator with a large colpotomy cup was placed. The umbilicus was then infiltrated with 0.5% Marcaine with epinephrine. A 1 cm umbilical incision was made transversely and a Veress needle was used to insufflate the abdominal cavity with carbon dioxide. Once the abdomen was appropriately insufflated, a 5 mm trocar and sleeve were then placed through the umbilical incision. The scope was placed through the trocar and the initial assessment of the intra-abdominal contents carried out. A 2nd and 3rd 5 mm port was then placed 1st in the right mid quadrant from then the left mid quadrant by infiltration of the skin and subcutaneous tissues, a 1 cm transverse incision and insertion of the 5 mm bladeless port. Using a 3 puncture technique, the abdomen and pelvis were inspected laparoscopy and photographically documented. Uterus is mobilized with the VCare manipulator and attention turned to the left adnexa. The distal tube was then grasped and the fimbria varicose divided after coagulation with the PowerSeal device. The dissection was then carried out toward the cornua and the fallopian tube amputated. The tube was removed through a 5 mm port and dissection was then carried down using the PowerSeal device so as to divide the utero-ovarian ligament and the round ligament with blunt and sharp dissection of the broad down to the level of the uterine artery. The uterine artery was then skeletonized after development of a bladder flap, coagulated, and divided. Once hemostasis was assured on the left side attention was turned to the right and the tube, utero-ovarian ligament, round ligament, and broad ligament were dissected in a fashion exactly the same as it had been on the left. The right uterine artery was then visualized after skeletonization and coagulated and divided. The uterus was seen to michael after coagulation of both your arteries and the cup was identified through the vaginal muscularis at its insertion with the body of the cervix. Circumferential excision of the vaginal cup was accomplished without difficulty using monopolar current and the uterus mobilized. The uterus was then removed through the vagina and the vaginal cuff closed [id number] with a series of 0 Vicryl [id number] stitches. Hemostasis was excellent, the abdomen was re-insufflated, and the pelvis inspected laparoscopically. The pelvis was inspected for any abnormality or bleeding, and the ureters were each seen to be peristalsing freely. With complete hemostasis assured, the pneumoperitoneum was vented and the ports removed. All of the 5 mm ports were then closed with 4-0 Monocryl on the skin using inverted interrupted sutures. Skin glue was placed and after the glue was dried, an appropriate dressing was applied. The case was then terminated, the patient awakened, and then transferred to PACU after having tolerated the procedure well. Complications: none Post-operative Condition: stable Disposition: PACU Plan for aftercare: Recovery in ambulatory surgery in discharge home later today if pain is under control and she is tolerating oral intake well.
[2022-07-20] MEDS: OXYCODONE IR 5 MG TABLET PO (16:48)
[2022-07-20] MEDS: LACTATED RINGERS 1,000 ML 100 ML IV (17:17)
--- NOTE | 2022-07-20 18:42 | PC.NURSE ---
Patient has lapsites to her lower abdomen that are cdi. She has a willingham in place putting out yellow urine. She was medicated with oxy and dilaudid down in pacu and refused her toradol at this time. 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 Resting comfortably at this time.
[2022-07-20] MEDS: KETOROLAC 30 MG/ML VIAL IV (21:27)
[2022-07-21] MEDS: ONDANSETRON 4 MG/2 ML INJ 8 MG IV (02:24)
[2022-07-21] MEDS: LACTATED RINGERS 1,000 ML 100 ML IV (03:05)
--- NOTE | 2022-07-21 03:12 | PC.NURSE ---
Denies nausea now. Reported when I tried to get up earlier, I got really nauseous. Medicated with Zofran. Reported feels a lot better now. Ambulated in the hallway x2, C/O of abdominal discomfort states feel gassy & bloated. Will monitor.
[2022-07-21] MEDS: KETOROLAC 30 MG/ML VIAL IV (04:28)
[2022-07-21 04:49] LABS: Add Manual Diff / Slide Review NO; Basophils Absolute Auto 0 /uL (0-100); Basophils Percent Auto 0.1 % (0-2); Eosinophils Absolute Auto 0 /uL (0-450); Hematocrit 34.3 % (36-46); Hemoglobin 11.7 g/dL (12.0-16.0); Lymphocytes Absolute Auto 700 /uL (1100-4500); Mean Corpuscular HGB Conc 34.2 % (30-36); Mean Corpuscular Volume 87.7 fL (80-100); Monocytes Absolute Auto 500 /uL (0-900); Monocytes Percent Auto 4.6 % (3-14); Neutrophils Absolute Auto 10400 /uL (1500-7000); Neutrophils Percent Auto 89.3 % (50-75); Platelet Count 262 X10^3/uL (150-400); Red Blood Cell Count 3.91 X10^6/uL (4.0-5.2); Red Cell Distribution Width 13.4 % (11.6-14.8); White Blood Cell Count 11.7 X10^3/uL (4.5-11.0)
[2022-07-21 06:11] VITALS: BP 115/70; PULSE 73; RESP 18; TEMP 36.8; O2SAT 97
--- NOTE | 2022-07-21 06:47 | PC.NURSE ---
0600 Checked she's sound asleep. Did not sleep until 0330. 0625 checked pt. she's awake, willingham cath. DC'd. Noted scant amount of bleeding, will monitor.
--- NOTE | 2022-07-21 08:29 | CM.DANOTE ---
DCP: Case received, EMR reviewed and met with patient. Introduced self and role. Was able to complete DCP assessment based upon information currently available. Patient is a 36 year old female who admitted yesterday morning to the care of Dr. Puri, PMP CERTIFIED PROJECT MANAGER. PCP: Dr. Sanchez. Payer: confirmed: [facility]. Patient came to the hospital for a surgical procedure. Patient had laparoscopic total hysterectomy with bilateral salpingectomy. Patient has history of menometrorrhagia. Met with patient in her room. She is alert and oriented, sitting up in bed. Confirmed that she resides in [place] with her spouse, Rohit. She is independent, and employed at [employer] in [place]. P: DCP to continue to follow. Patient should be able to go home when medically stable. Lolita Pang RN/Egg Gatherer Discharge Planning/Care Management CM Discharge Assessment Start: 07/21/22 08:28 Freq: Status: Active Protocol: Document 07/21/22 08:28 (Rec: 07/21/22 08:29 [id number]) Discharge Planning Assessment Assigned Sole Inker Lolita Pang RN/Egg Gatherer Advance Directives? No History Provided By Patient,Medical Record Prior Living Arrangements House Household Members spouse,children Type of transporation used prior to Drives own vehicle admit Independent with ADL's Yes Is patient alert and oriented? Yes Caregiver for Another No Barriers to Discharge No Discharge Plan Home Referrals Initiated None needed Whiteboard Updated in Patient Room with Yes name and ext. # of Sole Inker Review Status In Process Next Review Type Continued Stay Review
--- NOTE | 2022-07-21 08:36 | P.DS_ITS ---
History of Present Illness History of Present Illness Date Patient Seen: 07/21/22 Time Patient Seen: 08:36 Chief complaint: OPB Discharge Providers Provider Date of admission: 07/20/2022 Discharge Date: 07/21/22 Primary care physician: Sara Grant DO Discharge provider: Bacilio Puri MD Summary Hospital Course Discharge Diagnosis: Menometrorrhagia Adenomyosis Chronic iron-deficiency anemia Hospital Course: Rosy was admitted on 07/20/2022 and on that afternoon underwent an uneventful total laparoscopic hysterectomy with bilateral salpingectomy. Full details of the procedure itself or well summarized on my operative note of that date. Following surgery the patient has done extremely well with prompt return of bowel and bladder function, she is ambulating independently, tolerating regular diet, and her pain is well controlled with oral pain medications. She will be discharged this time to home in an afebrile normotensive condition after counseling regarding precautionary symptoms, limitations of activity, medi cations, and plans for follow-up which will be in 2 weeks. Medications at discharge will include resumption of all preop medications and oxycodone 5 mg every 6 hours as needed for pain, dispensed 10 with no refills, and Cipro 500 mg p.o. b.i.d. x5 days for UTI prophylaxis following catheterization. Status at Discharge Cognitive/behavioral status at discharge: oriented Functional status at discharge: independent ambulation Overall status at discharge: patient is progressing back to baseline Time Spent with Patient Time spent: Less than 30 minutes Exam Vital Signs (past 8 hours): - 07/21/22 06:11 Temperature 98.2 F Pulse Rate 73 Respiratory Rate 18 Blood Pressure 115/70 Pulse Oximetry 97 Oxygen Delivery Method Room Air Oxygen Flow Rate 0 Const General: cooperative and comfortable Nutritional Appearance: average body habitus Orientation: alert and oriented x3 HENMT Head: normal to inspection, atraumatic and abrasion Ears: hearing grossly normal bilaterally Face and sinus: face symmetric Eyes General: appearance normal, both eyes and all related structures Conjunctivae: conjunctivae normal Sclera: sclerae normal EOM: EOM intact bilaterally Neck Neck: normal visual inspection Resp Effort & Inspection: normal respiratory effort and able to speak in complete sentences Auscultation: clear to auscultation bilaterally Cardio Rate: regular rate Rhythm: regular rhythm Heart Sounds: S1 normal, S2 normal and no murmurs GI Inspection: normal to inspection and incision (Surgical dressings clean and dry) Palpation: soft, no hepatosplenomegaly and tender (Mild, diffuse postsurgical tenderness) External Female Exam: other (No significant bleeding noted) Extrem General: no calf tenderness Psych Appearance: grossly normal Mental Status: mental status grossly normal Speech and Movement: speech and movement normal Mood: congruent mood Affect: normal affect Attitude: cooperative Thought Process: normal Thought Content: normal Judgment: judgment good Objective Labs 07/21/22 04:39 Labs: Laboratory Results - last 24 hr 07/20/22 07/21/22 13:39 04:39 WBC 11.7 H RBC 3.91 L Hgb 11.7 L Hct 34.3 L MCV 87.7 MCH 30.0 MCHC 34.2 RDW 13.4 Plt Count 262 Neut % (Auto) 89.3 H Lymph % (Auto) 6.0 L [place] % (Auto) 4.6 Eos % (Auto) 0.0 L Baso % (Auto) 0.1 Neut # (Auto) 93988 H Lymph # (Auto) 700 L [place] # (Auto) 500 Eos # (Auto) 0 Baso # (Auto) 0 SARS-CoV-2 (PCR) Negative [facility] Medical History (Updated 06/28/21 @ 12:27 by Bacilio Puri MD) Abnormal Pap smear of cervix (~2007) Adenomyosis of uterus (~06/2019) Female infertility associated with anovulation Heartburn (~2010) Hypertension Iron deficiency anemia secondary to blood loss (chronic) (~04/2016) Kidney stones (~2013) Menorrhagia with regular cycle Migraines (~2010) Myopia of both eyes Palpitations Prurigo of Severe dysmenorrhea Wears contact lenses Surgical History (Updated 11/17/20 @ 22:21 by Wendy Marie) Anesthesia History of fracture of left ankle (~1997) History of hysteroscopy (~06/2019) History of removal of skin mole History of vaginal delivery Hx of arthroscopy (~2005) Docena teeth removed (~2017) Family History Mother Depression Anxiety Family/Other Hypertension Father Hypertension Grandmother Unknown family medical history Grandfather Known health problems: none Grandmother Arthritis Grandfather History of back surgery Sister Anemia Sister Anxiety Depression Social History marital status: unmarried,living together details: She lives in [place] part-time, part-time in [place]. Every other week number of children: 1 household members: spouse and children lives independently: Yes caregiver/support person: No housing: house pets and animals: Yes (2 Dogs: safe, aware. Getting a puppy in November. 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 [employer] current occupational exposures/hazards: No abel/yarsani: Lutheran seatbelt use: always do you feel safe at home: Yes Smoking Status: Former smoker Tobacco: How many years used: 10 quit status: quit date established (2005) second hand exposure: No alcohol intake: current substance use type: does not use during the past year weight has: increased > 10 lbs well-balanced diet: daily or most days daily servings fruits/ve-4 caffeine: Yes (Lars tea.) Type(s) of exercise: walking and normal ROM and activity frequency: 3-4 times per week duration: 15-30 minutes/day Discharge Plan Discharge Plan Patient Disposition: Home Provider Discharge Comment: Please review the written instructions you received when you were discharged from the hospital. or your postop visit is scheduled f or 2 weeks after your surgery and I look forward to seeing you then. If however in the meanwhile, you have any issues, concerns, or questions, please contact me either through the office phone at [phone], or via the patient portal. Discharge orders & Medications Discharge Orders: Discharge (Order); Ordered 07/21/22 Ordered By: Bacilio Puri Prescriptions: New oxycodone 5 mg Tablet 5 mg PO Q6H PRN (Reason: Pain, Moderate (4-6)) Qty: 10 0RF ciprofloxacin HCl [Cipro] 500 mg tablet 500 mg PO BID 5 Days Qty: 10 0RF Continued bupropion HCl 150 mg tablet sustained-release 12 hr 150 mg PO DAILY dextroamphetamine-amphetamine [Adderall] 20 mg tablet 20 mg PO DAILY Follow up/Referrals: Sara Cohn DO [Primary Care Provider] - Bacilio Puri MD [Physician] - Diet/Activity/Treatments Diet: Diet as Tolerated Activity: As tolerated Other treatments: [id number] Tylenol and/or ibuprofen may be used for additional pain relief. [id number] stool softeners and/or MiraLax may be used as needed for constipation. Skin/Wound/Dressing Care Report to your healthcare provider any signs of infection, such as:: chills, fever, increased pain, unusual drainage and unusual redness Dressing: Dressings may be removed on the morning 07/22/2022 Visit Report/Discharge Packet Instructions: DI for Hysterectomy, DI for Laparoscopy Stand Alone Forms: Surgery Discharge Discharge Data Primary Care Provider: Sara Cohn Attending Provider: Bacilio Puri VTE Deep Vein Thrombosis/Pulmonary Embolism Present on Admission: No
== END 2022-07-21 09:25 | disposition home or self-care (01) ==
LOC: OR 12:53 → AC 17:06
PROVIDERS: PCP Family Medicine; Referring Provider Obstetrics & Gynecology; Visit Provider Obstetrics & Gynecology
PROC: 0UT94ZZ Resection of Uterus, Percutaneous Endoscopic Approach (ICD-10-PCS; CPT 58571; principal; 2022-07-20 13:45)
DX: N92.1 Excessive and frequent menstruation with irregular cycle (principal); N80.03 Adenomyosis of the uterus; D50.9 Iron deficiency anemia, unspecified; D25.9 Leiomyoma of uterus, unspecified
CPT/HCPCS: 58571; 36415; 85025; 87635; C9803; J0131; J0171; J0690; J1100; J1170; J1885; J2250; J2405; J2704; J2795; J3010